=== PATIENT | female | born 1960 | race Caucasian/White ===

== ENCOUNTER 2018-05-02 12:18 | Emergency (ER) | payer MEDICAID ==
--- NOTE | 2018-05-02 12:38 | Emergency Department Record ---
History of Present Illness - General Chief Complaint: Slurred speech Stated Complaint: SWEATS,LIGHTHEADED Time Seen by Provider: 05/02/18 12:32 Source: Patient Mode of Arrival: Ambulatory Limitations: No limitations - History of Present Illness Initial Comments: 57 yo female presents from work at the [employer]. Over the last week she has been having episodes of sudden nausea, weakness, hot flashes, lightheaded and a feeling like she is going to pass out if she doesn't sit or lay down. Today this was witnessed by a co-worker. The co-worked noted she looked flushed, sat down, and seemed "out of it" with slurring for a few seconds. The patient reports she has "heart condition" but is unsure of the diagnosis, COPD, HTN, hypothyroidism. She denies stroke. She has had DVT's in the legs in the past. PCP is in [place]. Her claims supervisor is at [facility]. Prior PCP was Dr Arredondo, her new PCP she has not seen is Dr Palm. No claims supervisor. -: Week(s) Location: Altered, Dysarthria (resolved) History of same: Yes Place: Home, Work Severity: Moderate Quality: Other Improves With: None Worsens With: None Context: Other Associated Symptoms: Other - Related Data Home Medications: Home Medications Medication Instructions Recorded Confirmed Last Taken Aripiprazole [Abilify] 5 mg PO DAILY 05/02/18 05/02/18 05/02/18 Carvedilol 12.5 mg PO BID 05/02/18 05/02/18 05/02/18 Lisinopril [Zestril] 5 mg PO DAILY 05/02/18 05/02/18 05/02/18 Venlafaxine HCl [Effexor Xr] 150 mg PO BID 05/02/18 05/02/18 05/02/18 Allergies/Adverse Reactions: Allergies Allergy/AdvReac Type Severity Reaction Status Date / Time Iodinated Contrast- Oral and Allergy PT UNSURE Verified 05/02/18 12:41 IV Dye OF REACTION Latex, Natural Rubber Allergy RASH Verified 05/02/18 13:13 Review of Systems Constitutional: Reports: Malaise, Weakness. Denies: Chills, Fever Eyes: Denies: Eye discharge, Eye pain, Photophobia, Vision change ENT: Denies: Congestion, Throat pain Respiratory: Reports: Dyspnea. Denies: Cough, Hemoptysis, Stridor, Wheezes Cardiovascular: Reports: Palpitations, Syncope (near). Denies: Chest pain, Edema Endocrine: Reports: Fatigue Gastrointestinal: Denies: Abdominal pain, Diarrhea, Nausea, Vomiting Genitourinary: Denies: Dysuria, Urgency Musculoskeletal: Denies: Arthralgia, Back pain, Myalgia Skin: Denies: Bruising, Change in color, Rash, Other Neurological: Denies: Confusion, Headache Psychiatric: Denies: Anxiety Hematological/Lymphatic: Denies: Blood Clots, Easy bleeding, Easy bruising, Swollen glands Physical Exam - General General Appearance: Alert, Oriented x3, Cooperative, No acute distress Limitations: No limitations - Head Head exam: Atraumatic, Normocephalic, Normal inspection - Eye Eye exam: Normal appearance, PERRL. negative: Conjunctival injection, Scleral icterus - ENT ENT exam: Normal exam, Mucous membranes moist Ear exam: Normal external inspection Nasal Exam: Normal inspection Mouth exam: Normal external inspection Teeth exam: Normal inspection Throat exam: Normal inspection - Neck Neck exam: Normal inspection. negative: Tenderness - Respiratory Respiratory exam: Normal lung sounds bilaterally. negative: Respiratory distress, Rhonchi, Stridor, Wheezes - Cardiovascular Cardiovascular Exam: Normal rhythm, Bradycardia. negative: Regular rate Peripheral Pulses: 2+: Radial (R), Radial (L) - GI/Abdominal GI/Abdominal exam: Soft. negative: Tenderness - Rectal Rectal exam: Deferred - exam: Deferred - Extremities Extremities exam: Normal inspection. negative: Pedal edema - Back Back exam: Denies: CVA tenderness (R), CVA tenderness (L) - Neurological Neurological exam: Alert, CN II-XII intact, Oriented X3. negative: Altered, Motor sensory deficit - Psychiatric Psychiatric exam: Normal affect, Normal mood - Skin Skin exam: Dry, Intact, Normal color, Warm Course - Reevaluation(s) Reevaluation #1: GCS is 15 NIH is 0 EMR reviewed. NO old records at [facility] 05/02/18 12:37 05/02/18 12:45 EKG #1: 12:36 Rate: 51 Rhythm: sinus bradycardia [place]: n Intervals: normal ST segments: normal Prior: no old 05/02/18 13:12 The CBC and BMP were reviewed. No acute changes. 05/02/18 13:12 HR occasionally decreases to the mid 40's. Sinus Bradycardia. Pacing pads will be placed for safety 05/02/18 13:17 The HCT was negative for any acute process. 05/02/18 13:19 The Troponin is normal 05/02/18 13:23 TSH is 9.44 The patient prefers [facility] for admission. Her new PCP is Dr Palm. She states she does not have a claims supervisor. She has not seen one for many years. She states several years ago she was sent to [facility] for heart rhythm problems at that time. 05/02/18 14:24 I EDDIE Glaser of [facility]. 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 He accepts the patient for transfer to [facility]. Medical Decision Making - Lab Data Result diagrams: 05/02/18 12:43 05/02/18 12:43 Disposition Disposition: Transfer Clinical Impression: Bradycardia, Near syncope Disposition: Acute Care Hospital Transfer Transfer To: [facility] Reason For Transfer: bradycardia, near syncope Accepting Physician: Voice Time Discussed w/Accepting Physician: 14:25 Condition: (2) Stable Forms: Patient Portal Access Time of Disposition: 14:25 Quality - Quality Measures Quality Measures: N/A - Blood Pressure Screening Does Patient Have Any of the Following: Active Dx of HTN Blood Pressure Classification: Pre-Hypertensive BP Reading Systolic Measurement: 145 Diastolic Measurement: 86 Screening for High Blood Pressure: Patient Exclusion, Hx of HTN [G9744]
[2018-05-02 12:48] LABS: HEMATOCRIT 39.8 % (35.0-47.0); HEMOGLOBIN 13.3 gm/dl (11.6-16.0); LYMPH % 18.5 % (16-45); MEAN CELL VOLUME 97.5 fl (81-97); MEAN CORPUSCULAR HEMOGLOBIN 32.6 pg (27-33); MEAN CORPUSCULAR HGB CONC 33.4 g/dl (32-36); MEAN PLATELET VOLUME 9.7 fl (7.4-10.4); MONO % 8.5 % (0-9); PLATELET COUNT 252 K/uL (130-400); RED BLOOD COUNT 4.08 M/uL (3.80-5.40); RED CELL DISTRIBUTION WIDTH 13.3 % (11.5-14.5); WHITE BLOOD COUNT W/O DIFF 7.5 K/uL (4.2-12.2)
[2018-05-02 12:59] LABS: BLOOD UREA NITROGEN 7 mg/dL (6-20)
[2018-05-02 13:00] LABS: CREATININE 0.7 mg/dL (0.5-0.9); EST GLOMERULAR FILTRATION RATE > 60 mL/min; TOTAL PROTEIN 7.1 g/dL (6.6-8.7)
[2018-05-02 13:02] LABS: GLUCOSE,RANDOM 84 mg/dL (74-109)
[2018-05-02 13:03] LABS: PARTIAL THROMBOPLASTIN TIME 26.5 SECONDS (24.5-39.1); PROTHROMBIN TIME (PATIENT) 10.1 SECONDS (9.5-12.1)
[2018-05-02 13:05] LABS: ALB/GLOB RATIO 1.4 (1.1-1.8); ALBUMIN 4.2 g/dL (4.0-5.0); ALKALINE PHOSPHATASE 98 U/L (45-87); ALT/SGPT 20 U/L (<33); AST/SGOT 22 U/L (10.0-35.0)
--- NOTE | 2018-05-04 14:57 | CT SCAN REPORT ---
EXAM: CT OF THE BRAIN WITHOUT CONTRAST HISTORY: NEAR SYNCOPE. TECHNIQUE: Routine noncontrast CT of the brain was obtained. Comparison: None. FINDINGS: The ventricles and subarachnoid spaces are normal in size. Minor white matter lucencies are questioned in each cerebral hemisphere. These are nonspecific, but likely areas of chronic small vessel ischemia. No other area of abnormally increased or decreased signal is noted throughout the brain substance. No abnormal extraaxial fluid collection is seen. No acute bone abnormality. The visualized paranasal sinuses and mastoid air cells are clear. There is mild prominence of cerumen within each external auditory canal. The orbits as visualized are unremarkable. IMPRESSION: 1. NO CT EVIDENCE OF ACUTE MAJOR VESSEL INFARCT, INTRACRANIAL HEMORRHAGE, NOR MASS. 2. QUESTIONABLE MINIMAL WHITE MATTER LUCENCY IN EACH CEREBRAL HEMISPHERE. THIS IS NONSPECIFIC, BUT LIKELY THE RESULT OF CHRONIC SMALL VESSEL ISCHEMIA. JOB NUMBER: [id number] [facility]
== END 2018-05-02 15:55 | disposition short-term general hospital (02) ==
LOC: ER 12:18
DX: R00.1 Bradycardia, unspecified (principal); R55 Syncope and collapse; R47.81 Slurred speech; R53.1 Weakness; R11.0 Nausea; J44.9 Chronic obstructive pulmonary disease, unspecified; I10 Essential (primary) hypertension; E03.9 Hypothyroidism, unspecified; Z86.718 Personal history of other venous thrombosis and embolism
CPT/HCPCS: 36416; 70450; 80053; 82948; 83735; 84443; 84484; 85025; 85610; 85730; 93005; 93010; 99285